=== PATIENT | female | born 1975 | race African-American/Black ===

== ENCOUNTER 2021-09-26 08:41 | Outpatient (CLI) | payer OTHER, SELFPAY | END 2021-09-26 08:42 | disposition home or self-care (01) | LOC: ANHLAB 08:43 | PROVIDERS: PCP Internal Medicine Gastroenterology; Visit Provider Obstetrics & Gynecology | DX: N92.1 Excessive and frequent menstruation with irregular cycle (principal) | CPT/HCPCS: 36415; 84443 ==

== ENCOUNTER 2021-10-13 08:00 | Outpatient (CLI) | payer OTHER, SELFPAY ==
[2021-10-13 08:47] LABS: Hematocrit 36.8 % (37.0-47.0); Hemoglobin 11.1 g/dL (12.0-15.0)
== END 2021-10-13 08:01 | disposition home or self-care (01) ==
LOC: ANHSURGERY 08:04
PROVIDERS: Anesthesiology; PCP Internal Medicine Gastroenterology; Visit Provider Obstetrics & Gynecology
DX: D64.9 Anemia, unspecified (principal); D25.9 Leiomyoma of uterus, unspecified; Z01.818 Encounter for other preprocedural examination
CPT/HCPCS: 36415; 85014; 85018; 86850; 86900; 86901

== ENCOUNTER 2021-10-16 14:31 | Observation (INO) | payer OTHER, SELFPAY ==
[2021-10-09 17:23] VITALS: BMI 44.7
--- NOTE | 2021-10-09 17:30 | PC.NURSE ---
Report to the Outpatient Waiting Room, entrance under the green pavilion located off [facility], at time ___6:00AM____ on date ___0-03-80____. OR Time: __07:30AM . - You and your visitor will be asked to self-screen and do not enter if you have any COVID symptoms. - Only one visitor and NO children visitors are allowed at this time. - The patient visitor is requested to leave or wait in car when not with patient due to restrictions. - A mask is required within the hospital. Patients may have clear liquids (water, carbonated beverages, clear teas, apple juice) until 3 hours prior to surgery with a maximum of 20 ounces. - No food from midnight until time of surgery Take the following medications with a SIP of water the morning of surgery: N/A Medications to discontinue per physician VITAMINS Date to take last fqzm 5-8-71 Please no make-up, nail yi, hairspray, perfume, deodorant, or body powder the day of surgery. No jewelry (including any body piercings) or valuables the day of surgery, leave them at home. Please take a shower or bath the night before, or the morning of, surgery with an antibacterial soap. Wear comfortable, loose fitting clothing. - Jewelry must be removed prior to entering the operating room. Rings and piercings that are not removed may be cut off. - The hospital will not accept responsibility for valuables. - Please leave all valuables, including medications, at home the day of surgery. If you are going home after surgery, a licensed equipment driver must drive you home. - NO public transportation without another adult. - We recommend that an adult stay with you for 24 hours following discharge. - We also recommend that you do not drive, make important decision, drink alcoholic beverages, or take any drugs that were not prescribed by your health care provider for at least 24 hours after your discharge time. Follow any additional instructions given to you from your surgeon. If you or anyone in your household have experienced Covid symptoms in the past week, please notify your surgeon or the nurse liaison at the phone number below for possible testing. Telephone instructions given to ____PATIENT and asked if any additional questions and then verbalized understanding. Patient advised to call surgeon office or pre surgery nurse liaison [phone] if any additional questions.
--- NOTE | 2021-10-14 17:32 | PM.IMHP ---
H&P: HPI History of Present Illness Date/Time: 10/14/21 17:32 46-year-old 3 para 3003 female presents for definitive management of heavy irregular vaginal bleeding. Approximately 1 year ago was having the same symptoms underwent hysteroscopic myomectomy. Was doing reasonably well for a period of time and then began to bleed again at which time endometrial ablation was discussed and declined. She continues with iron infusions per Hematology and is mildly anemic even with this. States her cycles are 5-7 days 3-5 days very heavy with clotting and cramping as well. We have discussed endometrial ablation but due to the heavy bleeding cramping discomfort she desires to proceed with definitive therapy. Ultrasound prior to her original hysteroscopy last year did show enlarged uterus with a 5cm posterior fibroid at that time. She also has had 3 previous deliveries and we have discussed the likelihood of supracervical procedure, also she will be retaining ovaries. Chief Complaint: Menometrorrhagia Review of Systems Review of Systems: All systems reviewed & are unremarkable except as noted in HPI and below PMFSH Past Medical History Medical History Anemia iron infusions x 3 months Sleep disorder Surgical History Surgical History Delivery by section x 3 History of hysteroscopy (01/09/21) Benign fibroid noted/ tissue benign S/P gastric sleeve procedure (~06/30/19) Family History Family History Mother COPD (chronic obstructive pulmonary disease) Diabetes mellitus Hypertension Heart disease Father Diabetes mellitus Heart disease Social History Social History Smoking status: Never smoker Second hand tobacco smoke exposure: Yes (MOTHER SMOKED) Alcohol intake: never Substance use: never Substance use type: does not use Additional living arrangements comments: Additional occupation/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 Gender identity (if verbalized by the patient): Female Sexual Orientation (if Verbalized by the Patient): Straight or Heterosexual Spiritual care concerns: No Meds Home Medications and Allergies Home Medications Medication Instructions Recorded Confirmed Type ergocalciferol (vitamin D2) 1,250 1,250 mcg PO MONTHLY 09/23/21 10/09/21 History mcg (50,000 unit) capsule docusate sodium 100 mg capsule 100 mg PO DAILY 10/09/21 10/09/21 History (Colace) multivitamin with minerals-folic 1 tablet PO DAILY 10/09/21 10/09/21 History acid 0.4 mg tablet Allergies Allergy/AdvReac Type Severity Reaction Status Date / Time fluconazole AdvReac Intermediate Dizziness Verified 10/09/21 17:20 Exam Const: General: cooperative, healthy appearing and comfortable Resp: Effort & Inspection: normal respiratory effort Auscultation: clear to auscultation bilaterally Cardio: Rate: regular rate Rhythm: regular rhythm GI: Inspection: normal to inspection, incision ( Prior incision noted) and obesity Auscultation: normal bowel sounds : External Female Exam: normal external appearance Speculum Exam - Vagina: normal appearance of the vagina Speculum Exam - Cervix: normal appearance of the cervix Bimanual exam- vagina & uterus: enlarged ( 12 to 14 week size globular.), fixed and Uterine tenderness Bimanual Exam- Adnexa, other: normal adnexae Assessment and Plan Assessment and plan (1) Fibroid uterus: Code(s): D25.9 - Leiomyoma of uterus, unspecified Status: Acute Assessment and Plan: Will proceed with abdominal hysterectomy with ovarian preservation. Due to history of multiple deliveries and fixed uterus we will likely encounter adhesions, and I have discussed with her the likely supracervi
[2021-10-15] VITALS (11 sets, daily range): BP systolic 93–146; BP diastolic 49–79; PULSE 51–70; RESP 14–20; TEMP 36.1–36.8; O2SAT 97–100
[2021-10-15] MEDS: ACETAMINOPHEN 500 MG TABLET 1000 MG PO (06:17)
[2021-10-15] MEDS: LACTATED RINGERS 1,000 ML 30 ML IV CONT ×3 (06:35→10:17)
[2021-10-15] MEDS: KETOROLAC 15 MG/ML VIAL (*BKC) IV PUSH (06:39)
--- NOTE | 2021-10-15 06:50 | P.PNAN_ITS ---
Anes - Initial Pre Proc Eval Procedure: Operation Date: 10/15/21 07:30 Proposed Procedures p Supracervical Abdominal Hysterectomy with Bilateral Salpingectomy - Rebel Fajardo MD Date/Time: 10/15/21 06:50 Surgeon: Rebel Fajardo MD Pre Op Diagnosis: uterine fibroid, menometrorrhagia Patient Data Age: 46 Gender: F Height: 1.52 m Weight: 104 kg Allergies Allergy/AdvReac Type Severity Reaction Status Date / Time fluconazole AdvReac Intermediate Dizziness Verified 10/09/21 17:20 Home Medications Medication Instructions Recorded Confirmed Type ergocalciferol (vitamin D2) 1,250 1,250 mcg PO MONTHLY 09/23/21 10/09/21 History mcg (50,000 unit) capsule docusate sodium 100 mg capsule 100 mg PO DAILY 10/09/21 10/15/21 History (Colace) multivitamin with minerals-folic 1 tablet PO DAILY 10/09/21 10/15/21 History acid 0.4 mg tablet Patient hx anesthesia problems: none Family hx anesthesia problems: none Results Review: All pre-operative results and documents have been reviewed as part of the pre- operative evaluation. [facility] Past Medical History Medical History (Updated 10/15/21 @ 06:50 by Andreas Lopez MD) Anemia iron infusions x 3 months Morbid obesity MECHELLE (obstructive sleep apnea) Sleep disorder Surgical History Surgical History Delivery by section x 3 History of hysteroscopy (01/09/21) Benign fibroid noted/ tissue benign S/P gastric sleeve procedure (~06/30/19) Family History Family History Mother COPD (chronic obstructive pulmonary disease) Diabetes mellitus Hypertension Heart disease Father Diabetes mellitus Heart disease Social History Social History Smoking status: Never smoker Second hand tobacco smoke exposure: Yes (MOTHER SMOKED) Alcohol intake: never Substance use: never Substance use type: does not use Living arrangements: with family Additional living arrangements comments: Additional occupation/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 Gender identity (if verbalized by the patient): Female Sexual Orientation (if Verbalized by the Patient): Straight or Heterosexual Spiritual care concerns: No Anes - Eval Final PreProcedure Day of Procedure 10/15/21 06:50 Patient weight: morbidly obese Heart: regular rate and rhythm Lungs: clear to auscultation Airway: Mallampati scale class II Neurological: alert and oriented Last oral intake: >/= 8 hours ASA classification: III Emergent: no Anesthetic plan: proceed Anesthesia type and monitoring: general ETT and standard monitoring Results Review: All pre-operative results and documents have been reviewed as part of the pre- operative evaluation. Informed Consent: The patient's anesthetic plan and its attendant risks and benefits were discussed with the patient/family/POA. Questions were solicited and answers provided to the satisfaction of the patient/family/POA.
--- NOTE | 2021-10-15 07:15 | WPDHPUPDATE1 ---
History and Physical Update Update Date/Time: 10/15/21 07:15 part of her hysterectomy we will be removing Fallopian tubes as well. No oophorectomy. History and Physical has been reviewed, including an updated exam of the patient. There are NO changes in the patient's condition. Risks, benefits, and alternatives have been discussed and questions answered. Patient agrees to proceed with procedure.
[2021-10-15] MEDS: ceFAZolin 2 GM/D5W 50 ML 2 GM/50 ML BAG IVPB (07:24)
--- NOTE | 2021-10-15 09:13 | P.OP_ITS ---
Procedure Note - Detailed Date of Procedure 10/15/21 Pre-op Diagnosis uterine fibroid, menometrorrhagia, prior section x 3 Post-op Diagnosis Same (plus adhesions) Procedure Performed Supracervical abdominal hysterectomy with bilateral salpingectomy Surgeon Rebel Fajardo MD Anesthesia General Findings Tubes and ovaries without abnormality. Uterus with enlarged 5-6 cm fundal fibroid. Anterior portion of the uterus densely adhered to the anterior abdominal wall. UTERUS AND TUBES WEIGHED 250G IN THE OPERATING ROOM Description of Procedure Patient was prepped and draped in usual manner for this procedure. Pfannenstiel incision was made and carried down to the fascia. Fascia was incised with immediate notation of the uterus densely adhered to the anterior abdominal wall and omental adhesions as well. Bowel itself was not adhered to the wall and was free flowing. The fascial incision was then dissected bilaterally and further exploration of the pelvis revealed the uterus to be adhered to the anterior abdominal wall and tubes ovaries that abnormality and, the bowel was readily packed into the upper abdomen and removed from the operative field. Attention was then placed to the uterus and round ligaments were cauterized and cut bi laterally and the anterior and posterior flaps of the broad ligament were dissected as much as could be done with the adhesions that were anterior. Bilaterally the tubes were then removed using cautery. Utero-ovarian ligament was clamped cut tied. The uterus was then sharply dissected away from the fascia to allow the bladder flap to be further dissected. These adhesions were dense and minimal bleeding was encountered during this dissection. Once the uterus had been freed from the anterior abdominal wall bladder flap was readily dissected and the uterine vessels then clamped cut and tied with hemostasis achieved. The cervix was then amputated at the level of the cervix and the cervix was closed using 0 Vicryl running interlocking manner with good hemostasis and approximation noted. In the area of the dense adhesions of the anterior abdominal wall Awilda was then placed empirically after all bleeding was noted to be stopped. All subfascial tissue was then inspected there was a s mall bleeder on the left fallopian to area which was rendered hemostatic with a [id number] suture. Omentum where bleeding was cauterized. Prior to closing the fascia length the inspection of all subfascial contents were undertaken with no bleeding and no issues noted. Fascia was approximated using 0 Vicryl running manner bilaterally with good approximation noted. Subcutaneous tissue was irrigated cauterized approximated 0 plain suture. Skin was then closed using 4-0 Monocryl in a subcuticular manner. Patient at this point was sent to the cover room in stable condition. Estimated Blood Loss 350 Urine Output 75 Drains No Packing No Pathology Yes Complications No immediate complications Condition Stable Disposition PACU [facility] Billing Surgery - Charge Forward: Surgery Billing
[2021-10-15] MEDS: fentaNYL CITRATE INJ (*CRX) 100 MCG/2 ML VIAL 25 MCG IV PUSH ×4 (09:57→10:08)
--- NOTE | 2021-10-15 10:11 | SUR.PHASEI ---
1010: Simple mask removed.
--- NOTE | 2021-10-15 11:10 | PC.NURSE ---
This patient, Kiana Marcus, was received from PACU on 10/15/21 at 1055 per bed. Patient oriented to unit policies and routines.
[2021-10-15] MEDS: DEXTROSE 5%/LACTATED RINGERS 1,000 ML 125 ML IV CONT ×2 (11:23→19:10)
[2021-10-15] MEDS: MORPHINE SULFATE PCA (*CRX) 30 MG/30 ML SYR IV CONT (11:27)
[2021-10-15] MEDS: ONDANSETRON INJ 4 MG/2 ML VIAL IV PUSH (11:33)
[2021-10-15] MEDS: HYDROcodone/acetaminophen (*CRX) 10-325 MG TABLET 1 TAB PO ×3 (14:30→20:32)
[2021-10-15] MEDS: KETOROLAC 30 MG/ML VIAL (*BKC) IV PUSH ×2 (14:30→20:41)
--- NOTE | 2021-10-15 17:50 | PC.NURSE ---
When pt had emesis at 1750, it only consisted of liquid; pain medication stayed down.
[2021-10-15] MEDS: METOCLOPRAMIDE HCL INJ 10 MG/2 ML VIAL IV PUSH (20:30)
[2021-10-16 00:35] VITALS: BP 90/43; PULSE 70; PULSE 72; RESP 16; TEMP 36.9; O2SAT 100; O2SAT 96
[2021-10-16] MEDS: HYDROcodone/acetaminophen (*CRX) 10-325 MG TABLET 1 TAB PO ×3 (00:36→08:48)
[2021-10-16 03:45] VITALS: BP 96/45; PULSE 78; RESP 18; TEMP 36.9; O2SAT 100
[2021-10-16] MEDS: KETOROLAC 30 MG/ML VIAL (*BKC) IV PUSH (04:01)
[2021-10-16] MEDS: DEXTROSE 5%/LACTATED RINGERS 1,000 ML 125 ML IV CONT ×2 (04:49→11:34)
[2021-10-16 05:10] LABS: Basophils Percent Auto 0.1 % (0.2-1.2); Eosinophils Percent Auto 0.2 % (0-4.4); Hematocrit 28.4 % (37.0-47.0); Hemoglobin 8.8 g/dL (12.0-15.0); Immature Granulocyte Absolute 0.05 K/mm3 (0.00-0.031); Immature Granulocyte Percent A 0.5 % (0-0.5); Lymphocytes Absolute Auto 1.05 K/mm3 (0.9-3.2); Lymphocytes Percent Auto 10.4 % (18.3-44.2); Mean Corpuscular Hemoglobin 27.3 pg (26-34); Mean Corpuscular Volume 88.2 fl (80-100); Monocytes Percent Auto 9.7 % (2.6-8.5); Neutrophils Percent Auto 79.1 % (45.5-73.1); Platelet Count Result 192 k/mm3 (150-375); Red Blood Count 3.22 M/mm3 (4.2-5.4); Red Cell Distribution Width 20.6 % (11.5-14.5); White Blood Count 10.1 K/mm3 (4.5-10.0)
[2021-10-16 07:20] VITALS: BP 101/55; PULSE 74; RESP 16; TEMP 36.8; O2SAT 100
[2021-10-16] MEDS: THERAPEUTIC MULTIVITAMINS/MINERALS TAB (*BKC) 1 TABLET PO (08:48)
[2021-10-16] MEDS: DOCUSATE SODIUM 100 MG CAPSULE PO (08:48)
[2021-10-16] MEDS: SIMETHICONE 80 MG TAB.CHEW PO (08:48)
[2021-10-16] MEDS: ONDANSETRON INJ 4 MG/2 ML VIAL IV PUSH (10:57)
--- NOTE | 2021-10-16 11:22 | PM.GYNPNOP ---
FLARE BREAKER - A/P Assessment and plan (1) Status post abdominal supracervical subtotal hysterectomy: Code(s): Z90.711 - Acquired absence of uterus with remaining cervical stump Status: Acute Assessment and Plan: at this point will continue increase in activity, remove Almendarez, and increase diet as tolerated. Postoperative Procedures: Procedures Operation Date: 10/15/21 07:30 Actual Procedure Side Surgeon p Supracervical Abdominal Hysterectomy with Bilateral Salpingectomy Bilateral Rebel Fajardo MD Time Spent With Patient Time: Total time spent is greater than 50% in coordination of care (as documented) at patient's floor/unit and/or counseling patient: Time with patient: less than 15 minutes FLARE BREAKER- PN:Subj Post-Op Subjective Date/time seen: 10/16/21 11:22 46-year-old female 1 day status post supracervical hysterectomy with bilateral salpingectomy due to fibroid uterus. Did have some difficulty with pain control yesterday afternoon, but this has resolved and she is doing reasonably well from a pain standpoint. Tolerated regular diet to this point with no nausea. She still has her catheter in place and has not been out of bed as of yet. Exam Narrative: Abdominal exam positive bowel sounds soft nondistended incision covered and dry. FLARE BREAKER - PN: Obj Data Vital Signs Vital Signs: Vital Signs - 24 hr 10/15/21 11:27 10/15/21 14:30 10/15/21 16:20 Temperature 98.1 F Pulse Rate 69 Respiratory Rate 16 16 18 Blood Pressure 93/49 L Pulse Oximetry 99 Oxygen Delivery 10/15/21 16:20 10/15/21 20:15 10/15/21 20:15 Temperature 98.3 F Pulse Rate 70 70 Respiratory Rate 16 16 Blood Pressure 109/49 L Pulse Oximetry 100 100 Oxygen Delivery Room Air Room Air 10/16/21 00:35 10/16/21 00:35 10/16/21 03:45 Temperature 98.5 F 98.4 F Pulse Rate 72 70 78 Respiratory Rate 16 16 18 Blood Pressure 90/43 L 96/45 L Pulse Oximetry 96 100 100 Oxygen Delivery Room Air 10/16/21 03:45 10/16/21 07:20 Temperature 98.3 F Pulse Rate 78 74 Respiratory Rate 18 16 Blood Pressure 101/55 L Pulse Oximetry 100 100 Oxygen Delivery Room Air Intake/Output Intake/Output: Intake & Output 10/13/21 10/14/21 10/15/21 10/16/21 23:59 23:59 23:59 23:59 Intake Total 1980 1360 Output Total 859 425 Balance 112 935 Meds/Results Medications: Active Medications Generic Name Dose Route Start Last Admin Trade Name Freq PRN Reason Stop Dose Admin Hydrocodone Bitart/Acetaminophen 1 tab 10/15/21 10:46 Hydrocodone/Acetaminophen (*Crx) 5-325 Mg Tablet PO Q3H PRN Pain Rated 5 or Less Hydrocodone Bitart/Acetaminophen 1 tab 10/15/21 10:46 10/16/21 08:48 Hydrocodone/Acetaminophen (*Crx) 10-325 Mg Tablet PO 1 tab Q3H PRN Administration Pain Rated 6 or Greater Docusate Sodium 100 mg 10/16/21 09:00 10/16/21 08:48 Docusate Sodium 100 Mg Capsule PO 100 mg DAILY MARIA T Administration Ergocalciferol 50,000 unit 10/15/21 09:00 10/16/21 08:52 Ergocalciferol 50,000 Unit Capsule PO Not Given We@0900 MARIA T Dextrose/Lactated Ringer's 1,000 mls @ 125 mls/hr 10/15/21 10:46 10/16/21 04:49 Dextrose 5%/Lactated Ringers IV CONT 125 mls/hr .Q8H MARIA T Administration Ibuprofen 600 mg 10/15/21 10:46 Ibuprofen 600 Mg Tablet PO Q6H PRN Cramping Ketorolac Tromethamine 30 mg 10/15/21 10:46 10/16/21 04:01 Ketorolac 30 Mg/Ml Vial (*Bkc) IV PUSH 10/20/21 10:45 30 mg Q6H PRN Administration Pain Rated 4-6 Metoclopramide HCl 10 mg 10/15/21 10:46 10/15/21 20:30 Metoclopramide Hcl Inj 10 Mg/2 Ml Vial IV PUSH 10 mg Q6H PRN Administration Nausea Morphine Sulfate 4 mg 10/15/21 10:46 Morphine Sulfate (*Crx) 4 Mg/Ml Inj IV PUSH Q4H PRN Pain Rated 7-10 Multivitamins/Calcium 1 tablet 10/16/21 09:00 10/16/21 08:48 Therapeutic Multivitamins/Minerals Tab (*Bkc) PO 1 tablet DAILY MARIA T Administrati
--- NOTE | 2021-10-16 11:59 | WPDANESPN ---
Anes - Prog Note Post-Op Date/Time: 10/16/21 11:59 Cardiovascular status: normal Respiratory status: normal Airway patency: baseline Mental status: baseline Post-Op hydration status: normal Vital Signs: Last Vital Signs Temp 36.8 C 10/16/21 07:20 Pulse 74 10/16/21 07:20 Resp 16 10/16/21 07:20 BP 101/55 L 10/16/21 07:20 Pulse Ox 100 10/16/21 07:20 O2 Del Method Room Air 10/16/21 03:45 O2 Flow Rate 8 10/15/21 10:05 Pain Score (VAS): 3 I/O: Intake & Output 10/15/21 10/16/21 10/16/21 23:59 07:59 15:59 Intake Total 1530 1360 975 Output Total 750 425 Balance 780 935 975 Laboratory Tests 10/16/21 03:59 10/16/21 03:59 WBC 10.1 H RBC 3.22 L Hgb 8.8 L Hct 28.4 L MCV 88.2 MCH 27.3 MCHC 31.0 L RDW 20.6 H Plt Count 192 MPV 12.0 H Immature Gran % (Auto) 0.5 Neut % (Auto) 79.1 H Lymph % (Auto) 10.4 L [place] % (Auto) 9.7 H Eos % (Auto) 0.2 Baso % (Auto) 0.1 L Lymph # (Auto) 1.05 Perkins # (Auto) 1.0 H Eos # (Auto) 0.0 Baso # (Auto) 0.0 Abs Immat Gran (auto) 0.05 H Absolute Neuts (auto) 8.0 H Absolute Nucleated RBC 0.0 Nucleated RBC % 0.0 Patient Feedback: Patient satisfied with anesthetic care.
[2021-10-16 12:25] VITALS: BP 101/57; PULSE 61; RESP 16; TEMP 36.9; O2SAT 100
[2021-10-16] MEDS: HYDROcodone/acetaminophen (*CRX) 5-325 MG TABLET 1 TAB PO ×2 (12:58→19:34)
[2021-10-16] MEDS: SODIUM CHLORIDE 0.9% IV 1,000 ML 999 ML IV CONT (12:58)
--- NOTE | 2021-10-16 13:28 | WPDANESPN ---
Anes - Prog Note Post-Op Date/Time: 10/16/21 13:28 Cardiovascular status: normal Respiratory status: normal Airway patency: baseline Mental status: baseline Post-Op hydration status: normal Vital Signs: Last Vital Signs Temp 36.9 C 10/16/21 12:25 Pulse 61 10/16/21 12:25 Resp 16 10/16/21 12:25 BP 101/57 L 10/16/21 12:25 Pulse Ox 100 10/16/21 12:25 O2 Del Method Room Air 10/16/21 07:15 O2 Flow Rate 8 10/15/21 10:05 Pain Score (VAS): 0 I/O: Intake & Output 10/15/21 10/16/21 10/16/21 23:59 07:59 15:59 Intake Total 1530 1360 1675 Output Total 750 625 100 Balance 835 512 5801 Laboratory Tests 10/16/21 03:59 10/16/21 03:59 WBC 10.1 H RBC 3.22 L Hgb 8.8 L Hct 28.4 L MCV 88.2 MCH 27.3 MCHC 31.0 L RDW 20.6 H Plt Count 192 MPV 12.0 H Immature Gran % (Auto) 0.5 Neut % (Auto) 79.1 H Lymph % (Auto) 10.4 L [place] % (Auto) 9.7 H Eos % (Auto) 0.2 Baso % (Auto) 0.1 L Lymph # (Auto) 1.05 [place] # (Auto) 1.0 H Eos # (Auto) 0.0 Baso # (Auto) 0.0 Abs Immat Gran (auto) 0.05 H Absolute Neuts (auto) 8.0 H Absolute Nucleated RBC 0.0 Nucleated RBC % 0.0 Patient Feedback: Patient satisfied with anesthetic care. Other Findings: Patient states nausea is improving with medication
[2021-10-16] MEDS: IBUPROFEN 600 MG TABLET PO ×2 (16:59→23:51)
[2021-10-16 19:25] VITALS: BP 103/56; PULSE 66; RESP 18; TEMP 37.1; O2SAT 99
[2021-10-17] MEDS: IBUPROFEN 600 MG TABLET PO ×2 (05:45→13:31)
[2021-10-17 07:35] VITALS: BP 114/59; PULSE 67; RESP 16; TEMP 36.2; O2SAT 99
[2021-10-17] MEDS: THERAPEUTIC MULTIVITAMINS/MINERALS TAB (*BKC) 1 TABLET PO (07:55)
[2021-10-17] MEDS: DOCUSATE SODIUM 100 MG CAPSULE PO (07:55)
[2021-10-17 08:00] VITALS: PULSE 67; RESP 16; O2SAT 99
[2021-10-17] MEDS: HYDROcodone/acetaminophen (*CRX) 5-325 MG TABLET 1 TAB PO ×2 (10:05→21:58)
--- NOTE | 2021-10-17 12:18 | PM.GYNPNOP ---
COMMUNITY PROGRAM ASSISTANT - A/P Postoperative Procedures: Procedures Operation Date: 10/15/21 07:30 Actual Procedure Side Surgeon p Supracervical Abdominal Hysterectomy with Bilateral Salpingectomy Bilateral Rebel Fajardo MD Postoperative day: 2 Postoperative status: doing well Postoperative plan: routine post-op care and discharge (Tomorrow) Time Spent With Patient Time: Total time spent is greater than 50% in coordination of care (as documented) at patient's floor/unit and/or counseling patient: Time with patient: less than 15 minutes COMMUNITY PROGRAM ASSISTANT- PN:Subj Post-Op Subjective Date/time seen: 10/17/21 12:18 46-year-old female today status post supracervical hysterectomy. Today she is ambulating voiding tolerating regular diet and on oral pain medications. Also passing gas so she has not had a bowel movement. Exam Narrative: Positive bowel sounds soft nondistended Incision bandage dry. COMMUNITY PROGRAM ASSISTANT - PN: Obj Data Vital Signs Vital Signs: Vital Signs - 24 hr 10/16/21 12:25 10/16/21 19:25 10/16/21 19:25 Temperature 98.5 F 98.7 F Pulse Rate 61 66 66 Respiratory Rate 16 18 18 Blood Pressure 101/57 L 103/56 L Pulse Oximetry 100 99 99 Oxygen Delivery Room Air 10/17/21 07:35 10/17/21 08:00 Temperature 97.2 F L Pulse Rate 67 67 Respiratory Rate 16 16 Blood Pressure 114/59 L Pulse Oximetry 99 99 Oxygen Delivery Room Air Intake/Output Intake/Output: Intake & Output 10/14/21 10/15/21 10/16/21 10/17/21 23:59 23:59 23:59 23:59 Intake Total 1980 4655 480 Output Total 855 1525 Balance 1125 3130 480 Meds/Results Medications: Active Medications Generic Name Dose Route Start Last Admin Trade Name Freq PRN Reason Stop Dose Admin Hydrocodone Bitart/Acetaminophen 1 tab 10/15/21 10:46 10/17/21 10:05 Hydrocodone/Acetaminophen (*Crx) 5-325 Mg Tablet PO 1 tab Q3H PRN Administration Pain Rated 5 or Less Hydrocodone Bitart/Acetaminophen 1 tab 10/15/21 10:46 10/16/21 08:48 Hydrocodone/Acetaminophen (*Crx) 10-325 Mg Tablet PO 1 tab Q3H PRN Administration Pain Rated 6 or Greater Docusate Sodium 100 mg 08/18/22 09:00 10/17/21 07:55 Docusate Sodium 100 Mg Capsule PO 100 mg DAILY [facility] Administration Ergocalciferol 50,000 unit 10/15/21 09:00 10/16/21 08:52 Ergocalciferol 50,000 Unit Capsule PO Not Given We@0900 [facility] Ibuprofen 600 mg 10/15/21 10:46 10/17/21 05:45 Ibuprofen 600 Mg Tablet PO 600 mg Q6H PRN Administration Cramping Ketorolac Tromethamine 30 mg 10/15/21 10:46 10/16/21 04:01 Ketorolac 30 Mg/Ml Vial (*Bkc) IV PUSH 10/20/21 10:45 30 mg Q6H PRN Administration Pain Rated 4-6 Metoclopramide HCl 10 mg 10/15/21 10:46 10/15/21 20:30 Metoclopramide Hcl Inj 10 Mg/2 Ml Vial IV PUSH 10 mg Q6H PRN Administration Nausea Morphine Sulfate 4 mg 10/15/21 10:46 Morphine Sulfate (*Crx) 4 Mg/Ml Inj IV PUSH Q4H PRN Pain Rated 7-10 Multivitamins/Calcium 1 tablet 10/16/21 09:00 10/17/21 07:55 Therapeutic Multivitamins/Minerals Tab (*Bkc) PO 1 tablet DAILY MARIA T Administration Naloxone HCl 0.1 mg 10/15/21 10:46 Naloxone Hcl 0.4 Mg/Ml Vial IV PUSH Q2M PRN Respiratory rate less than 10 Ondansetron HCl 4 mg 10/15/21 10:46 10/16/21 10:57 Ondansetron Inj 4 Mg/2 Ml Vial IV PUSH 4 mg Q6H PRN Administration Nausea Simethicone 80 mg 10/15/21 10:46 10/16/21 08:48 Simethicone 80 Mg Tab.Chew PO 80 mg Q2H PRN Administration Gas Labs CBC & Chem 7: 10/16/21 03:59
[2021-10-17 13:00] VITALS: PULSE 67; RESP 16; O2SAT 99
[2021-10-17 20:00] VITALS: BP 100/57; PULSE 75; RESP 16; TEMP 36.9; O2SAT 100
[2021-10-18 08:00] VITALS: BP 110/44; PULSE 81; RESP 18; TEMP 36.6
[2021-10-18] MEDS: HYDROcodone/acetaminophen (*CRX) 5-325 MG TABLET 1 TAB PO (10:13)
[2021-10-18] MEDS: DOCUSATE SODIUM 100 MG CAPSULE PO (10:13)
[2021-10-18] MEDS: THERAPEUTIC MULTIVITAMINS/MINERALS TAB (*BKC) 1 TABLET PO (10:13)
--- NOTE | 2021-10-23 09:00 | PM.OBDSVD ---
DS: Admitting Diagnosis Discharge Date 10/18/21 Admitting Diagnosis Symptomatic fibroid uterus OB - DS: Summary OB Procedures : Other OB Procedures Intrapartum: Other OB Procedures: : Other Peripartum Data Procedures: Procedures Operation Date: 10/15/21 07:30 Actual Procedure Side Surgeon p Supracervical Abdominal Hysterectomy with Bilateral Salpingectomy Bilateral Rebel Fajardo MD Time Spent with Patient Time attestation: Total time spent providing and/or coordinating discharge services: DS: Data Data Completed and Pending Completed studies during hospitalization: Pending at discharge 10/15/21 09:11 Surgical [PTH] Routine Discharge Plan Discharge Discharging Clinician: Rebel Fajardo Patient Disposition: Home, Self-Care Activity: may shower, no straining, no driving, may drive after 2 weeks and pelvic rest Diet: as tolerated Patient Instructions: Antibiotic Form, Hysterectomy (DC) Stand Alone Forms: General Discharge Information Follow-up/Referrals: Rebel Fajardo MD [Physician] - 1 Week Discharge Medications: New hydrocodone-acetaminophen 5-325 mg Tablet 1 tablet PO Q3H PRN (Reason: Pain Rated 5 Or Less) Qty: 30 0RF ibuprofen 600 mg Tablet 600 mg PO Q6H PRN (Reason: Cramping) Qty: 30 0RF Continued ergocalciferol (vitamin D2) 1,250 mcg (50,000 unit) capsule 1,250 mcg PO MONTHLY Rx Instructions: WEEKLY docusate sodium [Colace] 100 mg Capsule 100 mg PO DAILY multivit with min-folic acid 0.4 mg Tablet 1 tablet PO DAILY Date of admission: 10/16/21 14:31 Primary Care Provider: Julee*Ilya Admitting Provider: Rebel Fajardo Attending physician on admission: Rebel Fajardo Condition: Stable
== END 2021-10-18 10:23 | disposition home or self-care (01) ==
LOC: ANHSURGERY 14:36 → ANHOB2 14:36
PROVIDERS: Admitting Provider Obstetrics & Gynecology; PCP Internal Medicine Gastroenterology; Visit Provider Obstetrics & Gynecology
PROC: 0UT94ZZ Resection of Uterus, Percutaneous Endoscopic Approach (ICD-10-PCS; CPT 58180; principal; 2021-10-15 07:30)
DX: N80.0 Endometriosis of uterus (principal); D25.9 Leiomyoma of uterus, unspecified; D28.2 Benign neoplasm of uterine tubes and ligaments; N92.1 Excessive and frequent menstruation with irregular cycle; N73.6 Female pelvic peritoneal adhesions (postinfective); Z98.891 History of uterine scar from previous surgery; D64.9 Anemia, unspecified; Z98.84 Bariatric surgery status; E66.01 Morbid (severe) obesity due to excess calories; Z68.42 Body mass index [BMI] 45.0-49.9, adult; Z79.899 Other long term (current) drug therapy
CPT/HCPCS: 58180; 36415; 85025; 88307; 99199; A9270; G0378; G0379; J0690; J1170; J1885; J2250; J2270; J2405; J2765; J3010; J7030; J7120; J7121